=== PATIENT | female | born 1980 | race American Indian/Alaskan Native ===

== ENCOUNTER 2019-01-14 19:23 | Emergency (ER) | payer MEDICAID ==
[2019-01-14] MEDS ORDERED: IBUPROFEN PO ONE (20:33)
--- NOTE | 2019-01-14 20:33 | Event Note ---
ED Screening Note Date of service: 01/14/19 Time: 20:25 ED Screening Note: 38 y/o female comes in for mouth pain after having a tooth pulled on Thursday. Taking Vicodin for pain. This initial assessment/diagnostic orders/clinical plan/treatment(s) is/are subject to change based on patients health status, clinical progression and re- assessment by fellow clinical providers in the ED. Further treatment and workup at subsequent clinical providers discretion. Patient/guardian urged not to elope from the ED as their condition may be serious if not clinically assessed and managed. Initial orders include:
--- NOTE | 2019-01-14 20:40 | Emergency Department Report ---
ED ENT HPI - General Chief complaint: Headache Stated complaint: FACIAL PAIN Time Seen by Provider: 01/14/19 20:25 Source: EMS Mode of arrival: Ambulatory Limitations: No Limitations - History of Present Illness Initial comments: 38 y/o female comes in for mouth pain after having a tooth pulled on Thursday. Taking Vicodin for pain. complaint: tooth pain Onset/Timin -: days(s) Location: tooth # Severity scale (0 -10): 10 Quality: stabbing, aching, sharp Consistency: constant Worsens with: none Context- Dental: other (recent tooth pulled) Associated Symptoms: gum swelling - Related Data Previous Rx's Medication Instructions Recorded Last Taken Type Clindamycin [Clindamycin CAP] 300 mg PO Q8H #30 cap 01/14/19 Unknown Rx Allergies Allergy/AdvReac Type Severity Reaction Status Date / Time No Known Allergies Allergy Unverified 01/14/19 20:30 ED Dental HPI - General Chief complaint: Headache Stated complaint: FACIAL PAIN Time Seen by Provider: 01/14/19 20:25 Source: EMS Mode of arrival: Ambulatory Limitations: No Limitations - Related Data Previous Rx's Medication Instructions Recorded Last Taken Type Clindamycin [Clindamycin CAP] 300 mg PO Q8H #30 cap 01/14/19 Unknown Rx Allergies Allergy/AdvReac Type Severity Reaction Status Date / Time No Known Allergies Allergy Unverified 01/14/19 20:30 ED Review of Systems ROS: Stated complaint: FACIAL PAIN Other details as noted in HPI Comment: All other systems reviewed and negative ENT: dental pain ED Past Medical Hx - Past Medical History Previous Medical History?: No Hx Hypertension: No Hx CVA: No Hx Heart Attack/AMI: No Hx Congestive Heart Failure: No Hx Diabetes: No Hx Deep Vein Thrombosis: No Hx Pulmonary Embolism: No Hx GERD: No Hx Liver Disease: No Hx Renal Disease: No Hx of Cancer: Yes (cervical and lug) Hx Sickle Cell Disease: No Hx Arthritis: No Hx Headaches / Migraines: No Hx Seizures: No Hx Kidney Stones: No Hx Psychiatric Treatment: No Hx Asthma: No Hx COPD: No Hx Tuberculosis: No Hx Dementia: No Hx HIV: No - Surgical History Past Surgical History?: No Hx Coronary Stent: No Hx Open Heart Surgery: No Hx Pacemaker: No Hx Internal Defibrillator: No Hx Cholecystectomy: No Hx Appendectomy: No Hx Breast Surgery: No - Social History Smoking Status: Former Smoker Substance Use Type: Marijuana - Medications Home Medications: Home Medications Medication Instructions Recorded Confirmed Last Taken Type Clindamycin [Clindamycin CAP] 300 mg PO Q8H #30 cap 01/14/19 Unknown Rx ED Physical Exam - General Limitations: No Limitations General appearance: alert, in no apparent distress, obese - Head Head exam: Present: atraumatic, normocephalic - Eye Eye exam: Present: normal appearance - ENT ENT exam: Present: mucous membranes moist - Expanded ENT Exam Expanded Teeth exam: Present: gingival enlargement - Neck Neck exam: Present: normal inspection - Cardiovascular Cardiovascular Exam: Present: tachycardia - Neurological Exam Neurological exam: Present: alert, oriented X3, normal gait - Psychiatric Psychiatric exam: Present: normal affect, normal mood - Skin Skin exam: Present: warm, dry, intact, normal color. Absent: rash ED Course Vital Signs 01/14/19 01/14/19 19:28 20:20 Temperature 100.5 F H 100.5 F H Pulse Rate 109 H 109 H Respiratory 20 20 Rate Blood Pressure 118/71 Blood Pressure 118/71 [Right] O2 Sat by Pulse 98 98 Oximetry ED Medical Decision Making - Medical Decision Making 38 y/o female comes in for mouth pain after having a tooth pulled on Thursday. Taking Vicodin for pain. Patient is currently on xeralto will given tylenol Will place on clindamycin 300 mg tid and can take OTC Tylenol for pain. Critical care attestation.: If time is entered above; I have spent that time in minutes in the direct care of this critically ill patient, excluding procedure time. ED Disposition Clinical Impression: Dental abscess Disposition: TO HOME OR SELFCARE Is pt being admited?: No Does the pt Need Aspirin: No Condition: Stable Instructions: Dental Abscess (ED) Additional Instructions: Complete antibiotic take pain medication and follow back up with your dentist. Prescriptions: Clindamycin [Clindamycin CAP] 300 mg PO Q8H #30 cap Referrals: [facility] CRYSTAL [Primary Care Provider] - 3-5 Days Your,Dentist [Other] - 3-5 Days
[2019-01-14] MEDS ORDERED: TYLENOL PO ONE (20:45)
[2019-01-14 21:43] VITALS: BP 113/64
== END 2019-01-14 21:43 | disposition home or self-care (01) ==
LOC: ED 19:23
DX: K04.7 Periapical abscess without sinus (principal); F12.90 Cannabis use, unspecified, uncomplicated; Z87.891 Personal history of nicotine dependence; Z79.899 Other long term (current) drug therapy
CPT/HCPCS: 99283